=== PATIENT | female | born 1950 | race Caucasian/White ===

== ENCOUNTER → 2016-11-25 | Outpatient (CLI) | payer OTHER ==
[~2016-11-25] MED LIST: AMLODIPINE BESYL5 MG PO; BYSTOLIC10 MG PO; DEXFOL; EXJADE125 MG PO; JADENU360 MG PO; LEVOTHYROXINE50 MCG PO; MAXZIDE 37.5 M1 EACH PO; PROCRIT SUBQ; REVLIMID10 MG PO; SYNTHROID125; SYNTHROID25 MCG PO; VIDAZA SUBQ; VITAMIN D1000 UNIT PO; VITAMIN D400 UNI2 PO; ZOLOFT PO; ZOLOFT100 MG PO
== END | disposition home or self-care (01) ==
LOC: CSSDAY 07:30
DX: D46.9 Myelodysplastic syndrome, unspecified (principal); D64.3 Other sideroblastic anemias
CPT/HCPCS: 36430; G0463; P9016

== ENCOUNTER → 2016-12-20 | Outpatient (CLI) | payer OTHER | END | disposition home or self-care (01) | LOC: CLAB 14:33 | DX: D64.9 Anemia, unspecified (principal) | CPT/HCPCS: 86850; 86900; 86901; 86905; 86922 ==

== ENCOUNTER → 2016-12-21 | Outpatient (CLI) | payer OTHER | END | disposition home or self-care (01) | LOC: CSSDAY 08:23 | DX: D46.9 Myelodysplastic syndrome, unspecified (principal); D64.3 Other sideroblastic anemias | CPT/HCPCS: 36430; P9016 ==

== ENCOUNTER → 2017-03-16 | Outpatient (CLI) | payer OTHER | END | disposition home or self-care (01) | LOC: CLAB 11:33 | DX: D46.9 Myelodysplastic syndrome, unspecified (principal) | CPT/HCPCS: 36415; 86850; 86900; 86901; 86922 ==

== ENCOUNTER → 2017-03-17 | Outpatient (CLI) | payer OTHER | END | disposition home or self-care (01) | LOC: CSSDAY 08:00 | DX: D46.9 Myelodysplastic syndrome, unspecified (principal) | CPT/HCPCS: 36430; P9016 ==

== ENCOUNTER 2017-03-28 18:45 | Emergency (ER) | payer OTHER ==
--- NOTE | ~2017-03-28 | CR72 ---
[facility] A Service of [facility] & [facility] RADIOLOGY TEXT RESULTS PATIENT: ADE GONZALES LOCATION: [facility] : 48 UNIT #: [id number] AGE: [address]: Erasto Norton MD SEX: F ORDER DR: [id number] [facility] [address] [place], [place] [address] [id number] E MR#: [id number] Acc #: [id number] NAME: ADE GONZALES : 1950 SEX: F STUDY DATE/TIME: 03/28/2017 20:31 UNIT: [facility] ROOM: STUDY DESCRIPTION: CR Chest Single View Portable Attending Physician: Erasto Norton M.D. Ordering Physician: Erasto Norton M.D. Primary Care Physician: Meghan Gibson M.D. MEDICAL IMAGING REPORT This report is preliminary unless electronic signature is present EXAM Portable chest, 1 view. DATE 03/28/17 COMPARISON 06/24/13 CLINICAL HISTORY Short of air, fatigue, and weakness for 3 days. FINDINGS There is no consolidation or effusion or pneumothorax, but there is mild vascular congestion and there is mild cardiomegaly. There is no pneumothorax. Question mild congestive failure and/or hypovolemia. Dictated by... Deni Wise M.D. THIS IS AN ELECTRONICALLY VERIFIED REPORT Deni Wise M.D. at 03/31/2017 5:35 PM TEV/pc TD: 03/29/2017 06:15 JOB #: [id number] MEDICAL IMAGING REPORT Page 1 of 1 COPY
--- NOTE | ~2017-03-28 | EKG ---
PATIENT: ADE GONZALES UNIT #: [id number] Ventricular Rate: 70 BPM Atrial Rate: 70 BPM P-R Interval: 146 ms QRS Duration: 102 ms Q-T Interval: 386 ms QTC Calculation(Bezet): 416 ms P [place]: 53 degrees Calculated R [place]: -22 degrees Calculated T [place]: 42 degrees Diagnosis Line: Normal sinus rhythm Diagnosis Line: Incomplete right bundle branch block Diagnosis Line: Borderline ECG Diagnosis Line: When compared with ECG of 13-NOV-2014 08:10, Diagnosis Line: No significant change was found Diagnosis Line: Confirmed by HERACLIO ZUNIGA MD ([id number]) on Diagnosis Line: 03/29/2017 11:02:31 AM INTERPRETING GRACE WADE
[~2017-03-28 18:45] MED LIST changes: -BYSTOLIC10 MG PO
[2017-03-28] MEDS ORDERED: BYSTOLIC10 MG PO (18:46)
[2017-03-28 19:58] LABS: BASOPHIL# 0.1 X10e3 (0-0.3); EOSINOPHIL% 1.1 % (0.0-7.0); HEMATOCRIT 23.5 % (35.0-45.0); HEMOGLOBIN 7.6 gm/dL (12.0-16.0); LYMPHOCYTE# 0.9 X10e3 (1.0-3.5); LYMPHOCYTE% 23.2 % (17.0-45.0); MEAN CELL VOLUME 98.8 FL (83-96); MEAN CORPUSCULAR HEMOGLOBIN 31.9 PG (28-34); MEAN CORPUSCULAR HGB CONC 32.3 g/dL (30-36); MEAN PLATELET VOLUME 8.6 FL (6.5-11.5); MONOCYTE# 0.4 X10e3 (0-1.0); MONOCYTE% 11.8 % (3.0-12.0); NEUTROPHIL# 2.2 X10e3 (1.5-7.1); NEUTROPHIL% 59.9 % (40-75); PLATELET COUNT 399 X10e3 (140-420); RED BLOOD COUNT 2.38 X10e (3.90-5.30); RED CELL DISTRIBUTION WIDTH 25.9 % (11.0-15.5); WHITE BLOOD COUNT 3.7 X10e3 (4.0-10.5)
[2017-03-28 19:59] LABS: DIFF IND YES
[2017-03-28 20:15] LABS: ALBUMIN SERUM 3.9 g/dL (3.5-5.0); BILIRUBIN, DIRECT 0.5 mg/dL (0.0-0.2); BILIRUBIN,INDIRECT 0.8 mg/dL (0.0-0.9); BILIRUBIN,TOTAL 1.3 mg/dL (0.2-2.0); BUN/CREATININE RATIO 20.71; CALCIUM SERUM 9.5 mg/dL (8.4-10.2); CREATININE SERUM 1.4 mg/dL (0.6-1.4); GLOM FILT RATE Estimated 38.8 mL/min (>60); POTASSIUM 3.2 mmol/L (3.5-5.1)
[2017-03-28 20:18] LABS: BURR CELLS PRESENT; PLATELET ESTIMATE NORMAL (NORMAL)
[2017-03-28 20:19] LABS: OVALOCYTES PRESENT; TEAR DROP CELLS PRESENT
[2017-03-28 20:37] LABS: URINE SOURCE CLEAN CATCH
[2017-03-28 21:08] LABS: URINE APPEARANCE CLOUDY; URINE COLOR YELLOW; URINE PH 5.5 (5-8); URINE SPECIFIC GRAVITY 1.018 (1.003-1.035)
[2017-03-28 21:09] LABS: URINE GLUCOSE NEG (NEG); URINE ICTOTEST NEG (NEG); URINE KETONE NEG (NEG); URINE LEUKOCYTE ESTERASE 1+ (NEG); URINE NITRATE NEG (NEG); URINE PROTEIN 1+ (NEG); URINE UROBILINOGEN 0.2 MG/DL (NEG)
[2017-03-28 21:10] LABS: URINE BILIRUBIN NEG (NEG); URINE BLOOD TRACE (NEG)
[2017-03-28 21:13] LABS: CULTURE INDICATED? NO; URINE SQUAMOUS EPITHELIAL CELL FEW /[HPF]; UWBCS1 AUWI 0-2 (0-5)
== END 2017-03-28 22:15 | disposition home or self-care (01) ==
LOC: CED 18:45
DX: D64.9 Anemia, unspecified (principal); I10 Essential (primary) hypertension; K21.9 Gastro-esophageal reflux disease without esophagitis; Z88.5 Allergy status to narcotic agent; Z98.51 Tubal ligation status; Z79.899 Other long term (current) drug therapy
CPT/HCPCS: 36415; 71010; 80048; 80076; 81003; 85025; 93005; 99285

== ENCOUNTER → 2017-03-29 | Outpatient (CLI) | payer OTHER ==
[~2017-03-29] MED LIST changes: +BYSTOLIC10 MG PO
== END | disposition home or self-care (01) ==
LOC: CLAB 09:40
DX: D64.89 Other specified anemias (principal)
CPT/HCPCS: 36415; 86850; 86900; 86901; 86905; 86922

== ENCOUNTER → 2017-03-30 | Outpatient (CLI) | payer OTHER | END | disposition home or self-care (01) | LOC: CSSDAY 08:37 | DX: D46.9 Myelodysplastic syndrome, unspecified (principal); D64.9 Anemia, unspecified | CPT/HCPCS: 36430; P9016 ==

== ENCOUNTER → 2017-05-18 | Outpatient (CLI) | payer OTHER | END | disposition home or self-care (01) | LOC: CLAB 12:15 | DX: D46.9 Myelodysplastic syndrome, unspecified (principal); D64.9 Anemia, unspecified | CPT/HCPCS: 36415; 86850; 86900; 86901; 86922 ==

== ENCOUNTER → 2017-05-19 | Outpatient (CLI) | payer OTHER | END | disposition home or self-care (01) | LOC: CSSDAY 07:05 | DX: D46.9 Myelodysplastic syndrome, unspecified (principal) | CPT/HCPCS: 36430; P9016 ==

== ENCOUNTER → 2017-06-14 | Outpatient (CLI) | payer OTHER | END | disposition home or self-care (01) | LOC: CLAB 10:38 | DX: D64.9 Anemia, unspecified (principal) | CPT/HCPCS: 86850; 86900; 86901; 86922 ==

== ENCOUNTER → 2017-06-15 | Outpatient (CLI) | payer OTHER | END | disposition home or self-care (01) | LOC: CSSDAY 08:30 | DX: D46.9 Myelodysplastic syndrome, unspecified (principal) | CPT/HCPCS: 36430; P9016 ==